=== PATIENT | male | born 1960 | race Caucasian/White ===

== ENCOUNTER 2018-12-16 13:53 | Emergency (ER) | payer OTHER ==
[~2018-12-16] VITALS: Ht 180.3 cm; Wt 104.3 kg
[~2018-12-16 13:53] MED LIST: ASPI81CH PO; ASPI81EC PO; ATOR80 PO; CLOP75 PO; DILT120 PO; DILT120ERA PO; FISH1000 PO; Isosorbide Mono10 MG PO; METF500 PO; METF500C PO; METO25ER PO; MICARDIS; RANI150 PO; ROPI1 PO; SIMV10 PO; SIMV40 PO; TELM20 PO; TELM40/12. PO; VENL150ER PO; VENL75ER PO; [UNRECOGNIZED DRUG - OTHER]
[2018-12-16 14:21] LABS: BASOPHILS ABSOLUTE AUTO 0.05 K/mm3 (0.00-0.23); BASOPHILS PERCENT AUTO 1 % (0-2); EOSINOPHILS ABSOLUTE AUTO 0.13 K/mm3 (0.00-0.68); EOSINOPHILS PERCENT AUTO 2 % (0-6); Hematocrit 42.5 % (37.0-53.0); Hemoglobin 14.5 g/dL (13.5-17.5); IMMATURE GRAN ABSOLUTE AUTO 0.04 K/mm3 (0.00-0.10); IMMATURE GRAN PERCENT AUTO 1 % (0-1); LYMPHOCYTES ABSOLUTE AUTO 2.08 K/mm3 (0.84-5.20); LYMPHOCYTES PERCENT AUTO 27 % (21-46); MONOCYTES ABSOLUTE AUTO 0.66 K/mm3 (0.16-1.47); MONOCYTES PERCENT AUTO 8 % (4-13); Mean Corpuscular HGB 29.8 pg (26.0-34.0); Mean Corpuscular HGB Conc 34.1 g/dL (31.5-36.5); Mean Corpuscular Volume 87 fL (80-100); Mean Platelet Volume 9.2 fL (9.1-12.4); NEUTROPHILS ABSOLUTE AUTO 4.87 K/mm3 (1.96-9.15); NEUTROPHILS PERCENT AUTO 62 % (41-73); Platelet Count 367 K/mm3 (150-400); RDW Coefficient Variation 13.6 % (11.7-14.2); RDW Standard Deviation 43.5 fL (35.1-46.3); Red Blood Cell Count 4.86 M/mm3 (4.30-5.90); White Blood Cell Count 7.83 K/mm3 (4.00-11.30)
[2018-12-16 14:40] LABS: Alanine Aminotransfer (ALT/SGP 39 U/L (12-78); Albumin, Blood 3.9 g/dL (3.4-5.0); Albumin/Globulin Ratio 1.1 (0.8-1.8); Alk Phos 75 U/L (50-136); Anion Gap 7 mmol/L (6-16); Aspartate Aminotrans (AST/SGOT 15 U/L (12-37); Bilirubin, Total 0.3 mg/dL (0.1-1.0); Blood Urea Nitrogen 30 mg/dL (8-24); Bun/Creatinine Ratio 24.6 (12.0-20.0); CO2, Blood 26 mmol/L (21-32); Calcium, Blood 8.7 mg/dL (8.5-10.1); Chloride, Blood 106 mmol/L (98-108); Creatinine, Blood 1.22 mg/dL (0.60-1.20); Globulin, Blood 3.7 g/dL (2.2-4.0); Glomerular Filtration Rate >60 (60-); Glucose, Blood 122 mg/dL (70-99); Sodium, Blood 139 mmol/L (136-145); Total Protein, Blood 7.6 g/dL (6.4-8.2)
== END 2018-12-16 17:14 | disposition home or self-care (01) ==
LOC: ER 13:53
PROVIDERS: Physician Assistant
DX: R42 Dizziness and giddiness (principal); Z87.891 Personal history of nicotine dependence; Z79.899 Other long term (current) drug therapy
CPT/HCPCS: 36415; 71046; 80053; 83690; 85025; 93005; 93010; 99284-25

== ENCOUNTER 2020-09-22 10:08 | Day surgery (SDC) | payer OTHER ==
[~2020-09-22] VITALS: Ht 182.9 cm; Wt 116.0 kg
[~2020-09-22 10:08] MED LIST changes: +AVALIDE 300-121 EACH PO; +Isosorbide Mono30 MG PO; +NITR.6SL SL
--- NOTE | 2020-09-22 15:27 | NUR ---
DISCHARGE PT REMAIN A&OX3 AND DENIED ANY PAIN DURING RECOVERY. PT UP TO RESTROOM WITH STEADY GAIT AND ABLE TO DRESS SELF INDEPENDATNLY. R GROIN SITE REMAINS CDI-NO HEMATOMA NOTED. IV D/C'D WITH CANULA IN TACT. DISCHARGE PAPERWORK VERBALLY GONE OVER WITH PT. PT VERBALLY STATED THE UNDERSTANDING OF THE DISCHARE EDUCATION AND DENIED ANY QUESTIONS AT THIS TIME. PT WHEELED OUT BY SEED AND FERTILIZER SPECIALIST.
== END 2020-09-22 13:30 | disposition home or self-care (01) ==
LOC: MHTC 10:08
DX: I25.118 Atherosclerotic heart disease of native coronary artery with other forms of angina pectoris (principal); E11.9 Type 2 diabetes mellitus without complications; E78.5 Hyperlipidemia, unspecified; I11.0 Hypertensive heart disease with heart failure; I50.9 Heart failure, unspecified; J44.9 Chronic obstructive pulmonary disease, unspecified; E66.01 Morbid (severe) obesity due to excess calories; G47.33 Obstructive sleep apnea (adult) (pediatric); I67.9 Cerebrovascular disease, unspecified; Z95.1 Presence of aortocoronary bypass graft; Z87.891 Personal history of nicotine dependence; Z79.82 Long term (current) use of aspirin; Z79.02 Long term (current) use of antithrombotics/antiplatelets; Z68.34 Body mass index [BMI] 34.0-34.9, adult
CPT/HCPCS: 93459; 99152; 99153; C1760; C1769; C1894; J1644; J2250; J3010; J7030; J7050; Q9967

== ENCOUNTER 2021-05-19 12:27 | Emergency (ER) | payer OTHER ==
[~2021-05-19] VITALS: Ht 182.9 cm; Wt 115.7 kg
== END 2021-05-19 13:42 | disposition home or self-care (01) ==
LOC: ER 12:27
DX: U07.1 COVID-19 (principal); I10 Essential (primary) hypertension; Z79.82 Long term (current) use of aspirin; Z79.899 Other long term (current) drug therapy; Z87.891 Personal history of nicotine dependence
CPT/HCPCS: 99283; A9270

== ENCOUNTER → 2021-11-08 | Outpatient (CLI) | payer OTHER ==
[2021-11-09 10:17] LABS: Stool Occult Bld Immuno 1 Negative (NEGATIVE)
== END | disposition home or self-care (01) ==
LOC: LAB 13:09 → LAB SHORT 13:09
PROVIDERS: Family Medicine
DX: R19.5 Other fecal abnormalities (principal)
CPT/HCPCS: 82274

== ENCOUNTER → 2021-11-19 | Outpatient (CLI) | payer OTHER | END | disposition home or self-care (01) | LOC: LAB SHORT 16:45 → LAB 16:45 | DX: R73.9 Hyperglycemia, unspecified (principal) | CPT/HCPCS: 83036 ==

== ENCOUNTER 2023-05-09 09:51 | Observation (INO) | payer OTHER ==
[~2023-05-09] VITALS: Ht 182.9 cm; Wt 113.7 kg
[~2023-05-09 09:51] MED LIST changes: +MECL25 PO
[2023-05-09 11:02] LABS: BASOPHILS ABSOLUTE AUTO 0.07 K/mm3 (0.00-0.23); BASOPHILS PERCENT AUTO 1 % (0-2); EOSINOPHILS ABSOLUTE AUTO 0.17 K/mm3 (0.00-0.68); EOSINOPHILS PERCENT AUTO 3 % (0-6); Hematocrit 40.5 % (37.0-53.0); Hemoglobin 13.4 g/dL (13.5-17.5); IMMATURE GRAN ABSOLUTE AUTO 0.03 K/mm3 (0.00-0.10); IMMATURE GRAN PERCENT AUTO 1 % (0-1); LYMPHOCYTES PERCENT AUTO 30 % (21-46); MONOCYTES ABSOLUTE AUTO 0.61 K/mm3 (0.16-1.47); MONOCYTES PERCENT AUTO 10 % (4-13); Mean Corpuscular HGB 28.6 pg (26.0-34.0); Mean Corpuscular HGB Conc 33.1 g/dL (31.5-36.5); Mean Corpuscular Volume 87 fL (80-100); Mean Platelet Volume 9.3 fL (9.1-12.4); NEUTROPHILS ABSOLUTE AUTO 3.66 K/mm3 (1.96-9.15); NEUTROPHILS PERCENT AUTO 57 % (41-73); Platelet Count 335 K/mm3 (150-400); RDW Coefficient Variation 13.2 % (11.7-14.2); RDW Standard Deviation 41.3 fL (35.1-46.3); Red Blood Cell Count 4.68 M/mm3 (4.30-5.90); White Blood Cell Count 6.44 K/mm3 (4.00-11.30)
[2023-05-09 11:43] LABS: Albumin, Blood 3.6 g/dL (3.4-5.0); Albumin/Globulin Ratio 1.1 (0.8-1.8); Bilirubin, Total 0.2 mg/dL (0.1-1.0); Bun/Creatinine Ratio 17.1 (12.0-20.0); Creatinine, Blood 1.23 mg/dL (0.60-1.20); Globulin, Blood 3.3 g/dL (2.2-4.0); Potassium, Blood 4.1 mmol/L (3.5-5.5); Total Protein, Blood 6.9 g/dL (6.4-8.2)
[2023-05-09 18:18] VITALS: BP 161/74
[2023-05-09 19:07] VITALS: BP 175/86
--- NOTE | 2023-05-09 19:30 | NUR ---
RN TO RN REPORT FROM KENY IN ER AT 1750, PATIENT ARRIVED ON UNIT AT 1804. HE DENIES ANY CHEST PAIN OR PRESSURE AT THIS TIME. VITALS STABLE. PATIENT ORIENTED TO ROOM AND CALL LIGHT. BED IN LOW POSITION. CALL LIGHT IN REACH.
[2023-05-10 04:11] VITALS: BP 125/75
[2023-05-10 04:25] LABS: BASOPHILS ABSOLUTE AUTO 0.06 K/mm3 (0.00-0.23); BASOPHILS PERCENT AUTO 1 % (0-2); EOSINOPHILS ABSOLUTE AUTO 0.22 K/mm3 (0.00-0.68); EOSINOPHILS PERCENT AUTO 3 % (0-6); Hematocrit 39.6 % (37.0-53.0); Hemoglobin 13.2 g/dL (13.5-17.5); IMMATURE GRAN ABSOLUTE AUTO 0.05 K/mm3 (0.00-0.10); IMMATURE GRAN PERCENT AUTO 1 % (0-1); LYMPHOCYTES ABSOLUTE AUTO 2.11 K/mm3 (0.84-5.20); LYMPHOCYTES PERCENT AUTO 31 % (21-46); MONOCYTES ABSOLUTE AUTO 0.54 K/mm3 (0.16-1.47); MONOCYTES PERCENT AUTO 8 % (4-13); Mean Corpuscular HGB 28.6 pg (26.0-34.0); Mean Corpuscular HGB Conc 33.3 g/dL (31.5-36.5); Mean Corpuscular Volume 86 fL (80-100); Mean Platelet Volume 8.9 fL (9.1-12.4); NEUTROPHILS ABSOLUTE AUTO 3.82 K/mm3 (1.96-9.15); NEUTROPHILS PERCENT AUTO 56 % (41-73); Platelet Count 335 K/mm3 (150-400); RDW Coefficient Variation 13.5 % (11.7-14.2); Red Blood Cell Count 4.61 M/mm3 (4.30-5.90)
[2023-05-10 05:29] LABS: Albumin, Blood 3.4 g/dL (3.4-5.0); Albumin/Globulin Ratio 1.1 (0.8-1.8); Bilirubin, Total 0.4 mg/dL (0.1-1.0); Bun/Creatinine Ratio 15.1 (12.0-20.0); Calcium, Blood 8.8 mg/dL (8.5-10.1); Creatinine, Blood 1.26 mg/dL (0.60-1.20); Globulin, Blood 3.2 g/dL (2.2-4.0); Potassium, Blood 4.2 mmol/L (3.5-5.5); Total Protein, Blood 6.6 g/dL (6.4-8.2)
--- NOTE | 2023-05-10 06:42 | NUR ---
SHIFT SUMMARY; NO ACUTE CHANGES OTHER THAN PTS TROPONINS HAVE BEEN STEADLY RISING OVERNIGHT. HOSPITALIST AWARE. PT DENIES ANY CHEST PAIN/PRESSURE, SOB OR PALPITATIONS. THE PT IS AXO X4 AND INDEPENDENT IN THE ROOM. THE PT HAS TELE ON- HE HAS BEEN NSR IN THE 60'S T/O THE NIGHT. THE PT HAS CPAP IN PLACE, 02 HAS BEEN >92%. THE PT DENIES ANY SOB, PAIN, N/V OR CHEST PAIN/PRESSURE. CURRENTLY THE PT IS SLEEPING IN BED WITH THE BED IN THE LOWEST POSITION AND THE CALL LIGHT AT BEDSIDE. FIRE SAFETY ROUNDS COMPLETED.
[2023-05-10 06:52] VITALS: BP 151/82
[2023-05-10 16:33] VITALS: BP 154/84
--- NOTE | 2023-05-10 16:50 | NUR ---
SHIFT SUMMARY- PT IS A/O/I AND PLESANT. HE IS EATING AND DRINKING WELL. HE RECIEVED THE FIRST PART OF A STRESS TEST THIS SHIFT AND WILL RECIEVE THE SECOND PART TOMORROW. HIS BED IS IN THE LOW POSITON AND CALL LACY PENA. FAMILY WAS AT BEDSIDE THIS SHIFT. HE SLEPT INTERMITENTLY.
[2023-05-10 19:22] VITALS: BP 144/79
--- NOTE | 2023-05-11 04:41 | NUR ---
PT A&O x4, VSS, AFEBRILE. PT CALM AND COOPERATIVE WITH CARE PROVIDED. PT DENIED CHEST PAIN, NO SOB. PT TOLERATED CPAP THROUGHOUT THE NIGHT. PT SLEPT WELL. UNEVENTFUL NIGHT. PT NPO FOR PART 2 OF STRESS TEST THIS MORNING. PT ABLE TO MAKE NEEDS KNOWN, CALL LIGHT WITHIN REACH, WCTM.
[2023-05-11 04:45] VITALS: BP 156/86
[2023-05-11 05:13] LABS: BASOPHILS ABSOLUTE AUTO 0.06 K/mm3 (0.00-0.23); BASOPHILS PERCENT AUTO 1 % (0-2); EOSINOPHILS ABSOLUTE AUTO 0.22 K/mm3 (0.00-0.68); EOSINOPHILS PERCENT AUTO 4 % (0-6); Hematocrit 41.7 % (37.0-53.0); Hemoglobin 13.8 g/dL (13.5-17.5); IMMATURE GRAN ABSOLUTE AUTO 0.03 K/mm3 (0.00-0.10); IMMATURE GRAN PERCENT AUTO 1 % (0-1); LYMPHOCYTES ABSOLUTE AUTO 2.12 K/mm3 (0.84-5.20); LYMPHOCYTES PERCENT AUTO 34 % (21-46); MONOCYTES ABSOLUTE AUTO 0.56 K/mm3 (0.16-1.47); MONOCYTES PERCENT AUTO 9 % (4-13); Mean Corpuscular HGB 28.8 pg (26.0-34.0); Mean Corpuscular HGB Conc 33.1 g/dL (31.5-36.5); Mean Corpuscular Volume 87 fL (80-100); Mean Platelet Volume 9.3 fL (9.1-12.4); NEUTROPHILS ABSOLUTE AUTO 3.31 K/mm3 (1.96-9.15); NEUTROPHILS PERCENT AUTO 52 % (41-73); Platelet Count 345 K/mm3 (150-400); RDW Coefficient Variation 13.3 % (11.7-14.2); RDW Standard Deviation 42.4 fL (35.1-46.3)
[2023-05-11 05:38] LABS: Bun/Creatinine Ratio 15.8 (12.0-20.0); Creatinine, Blood 1.33 mg/dL (0.60-1.20); Potassium, Blood 4.1 mmol/L (3.5-5.5)
[2023-05-11 07:09] VITALS: BP 142/79
--- NOTE | 2023-05-11 10:31 | NUR ---
Kathy from telemetry called stating 2.3 second pause at 0930. Pt asymptomatic at that time, however states gets a little dizzy when standing. Dr. Craven made aware. No further orders at this time. Will continue to monitor.
[2023-05-11 14:25] VITALS: BP 141/75
[2023-05-11] MEDS ORDERED: Isosorbide Mono30 MG PO (16:34)
--- NOTE | 2023-05-11 17:06 | NUR ---
SHIFT/DISCHARGE SUMMARY Pt remains A&Ox3 this shift. VSS. Denies any chest pain. Resp even nonlabored. Tolerating diet. Ambulates independently to bathroom. Stress test complete, discharge orders noted. All discharge instructions reviewed with pt and . Pt declines transport chair to [facility]. Ambulated independently with
== END 2023-05-11 17:10 | disposition home or self-care (01) ==
LOC: ER 09:51 → MEDS 09:52 → ER 17:57 → MEDS 18:03
PROVIDERS: Physician Assistant; ADMIT Internal Medicine
DX: I25.118 Atherosclerotic heart disease of native coronary artery with other forms of angina pectoris (principal); I10 Essential (primary) hypertension; E78.5 Hyperlipidemia, unspecified; J44.9 Chronic obstructive pulmonary disease, unspecified; R73.03 Prediabetes; Z79.02 Long term (current) use of antithrombotics/antiplatelets; Z79.899 Other long term (current) drug therapy; Z79.82 Long term (current) use of aspirin; Z87.891 Personal history of nicotine dependence; Z95.1 Presence of aortocoronary bypass graft
CPT/HCPCS: 36415; 71046; 78452; 80048; 80053; 83880; 84484; 85025; 93005; 93010; 93017; 94660; 94762; 96372; 99285-25; A9270; A9500; G0378; J0706; J1650; J2785

== ENCOUNTER → 2023-05-30 | Outpatient (CLI) | payer OTHER ==
[2023-05-30 15:18] LABS: Bun/Creatinine Ratio 17.4 (12.0-20.0); Calcium, Blood 9.4 mg/dL (8.5-10.1); Creatinine, Blood 1.21 mg/dL (0.60-1.20); Potassium, Blood 4.1 mmol/L (3.5-5.5)
== END ==
LOC: LAB 15:06 → LAB SHORT 15:06
PROVIDERS: Physician Assistant Medical
DX: R07.9 Chest pain, unspecified (principal)
CPT/HCPCS: 80048; 84484